=== PATIENT | male | born 1980 | race Caucasian/White ===

== ENCOUNTER 2017-12-01 06:12 | Inpatient (IN) | payer MEDICAID ==
[2017-12-01] VITALS (12 sets, daily range): BP systolic 110–145; BP diastolic 68–95; Ht 180.3 cm; Wt 85.5 kg
[~2017-12-01] VITALS: Ht 180.3 cm; Wt 85.5 kg
[2017-12-01 08:25] LABS: PLATELET COUNT 204 x10^3mcL (130-400); RED CELL DISTRIBUTION WIDTH 13.6 % (11.5-14.5)
[2017-12-01 08:29] LABS: CARBON DIOXIDE 17.8 mmol/L (21-32); CHLORIDE SERUM 104 mmol/L (98-107); CREATININE SERUM 1.6 mg/dL (0.7-1.3); GFR1 53 mL/min; GLUCOSE SERUM 97 mg/dL (74-106); POTASSIUM SERUM 3.6 mmol/L (3.5-5.1); SODIUM SERUM 138 mmol/L (136-145)
[2017-12-01 08:33] LABS: ALKALINE PHOSPHATASE 117 U/L (46-116); ALT/SGPT 135 U/L (16-63); AST/SGOT 285 U/L (15-37); BILIRUBIN TOTAL 1.09 mg/dL (0.20-1.00); TOTAL PROTEIN, SERUM 8.2 g/dL (6.4-8.2)
[2017-12-01 08:58] LABS: BAND NEUTROPHIL 7 % (0-10)
[2017-12-01 09:01] LABS: MONOCYTE 6 % (0-7)
[2017-12-01 09:02] LABS: PLATELET MORPHOLOGY PLATELETS NORMAL; SEGMENTED NEUTROPHILS 82 % (37-75); rbc morphology (normal/abnorm) NORMAL (NORMAL)
[2017-12-01 09:53] LABS: UA SPECIFIC GRAVITY >=1.030 (1.005-1.035); microscopic required? YES; urine erythrocyte 3+ (NEGATIVE)
[2017-12-01 10:01] LABS: AMPHETAMINE QUAL UR POSITIVE (See below)
[2017-12-01 10:55] LABS: APPEARANCE CSF CLEAR; COLOR CSF COLORLESS; RBC CSF 113.3 /cumm (0); WBC CSF 0 /cumm (0-5)
[2017-12-01 10:59] LABS: TOTAL PROTEIN CSF 20.9 mg/dL (15-45)
[2017-12-01 12:30] LABS: T3 TOTAL 1.26 ng/mL
[2017-12-01 13:18] LABS: FREE T4 1.78 ng/dL (0.76-1.46); FREE THYROXINE INDEX 3.6 ug/dL (1.4-4.5); T4(THYROXINE) 8.9 ug/dL (4.7-13.3)
[2017-12-01 14:28] LABS: PHOSPHOROUS 5.2 mg/dL (2.5-4.9)
[2017-12-01 14:33] LABS: CHOLESTEROL/HDL RATIO 3.1
[2017-12-02] VITALS (11 sets, daily range): BP systolic 100–132; BP diastolic 49–94
[2017-12-02 06:04] LABS: BASOPHIL % 0.3 % (0-2); PLATELET COUNT 163 x10^3mcL (130-400); RED CELL DISTRIBUTION WIDTH 13.9 % (11.5-14.5)
[2017-12-02 06:08] LABS: CARBON DIOXIDE 21.9 mmol/L (21-32); CREATININE SERUM 1.6 mg/dL (0.7-1.3); PHOSPHOROUS 4.8 mg/dL (2.5-4.9); POTASSIUM SERUM 3.3 mmol/L (3.5-5.1)
[2017-12-03 05:24] LABS: BASOPHIL % 0.4 % (0-2); PLATELET COUNT 170 x10^3mcL (130-400); RED CELL DISTRIBUTION WIDTH 13.8 % (11.5-14.5)
[2017-12-03 05:38] LABS: CALCIUM 8.7 mg/dL (8.5-10.1); CARBON DIOXIDE 22.6 mmol/L (21-32); CHLORIDE SERUM 109 mmol/L (98-107); GFR1 > 60 mL/min; GLUCOSE SERUM 82 mg/dL (74-106); MAGNESIUM 2.2 mg/dL (1.8-2.4); PHOSPHOROUS 3.8 mg/dL (2.5-4.9); POTASSIUM SERUM 3.1 mmol/L (3.5-5.1); SODIUM SERUM 142 mmol/L (136-145)
[2017-12-03 08:00] VITALS: BP 121/74
[2017-12-03 12:00] VITALS: BP 124/78
[2017-12-03 16:00] VITALS: BP 124/84
[2017-12-03 20:55] VITALS: BP 102/59
[2017-12-04 05:21] VITALS: BP 106/69
[2017-12-04 07:21] LABS: BASOPHIL % 0.7 % (0-2); PLATELET COUNT 187 x10^3mcL (130-400); RED CELL DISTRIBUTION WIDTH 13.5 % (11.5-14.5)
[2017-12-04 07:26] LABS: CALCIUM 7.7 mg/dL (8.5-10.1); CARBON DIOXIDE 27.9 mmol/L (21-32); CHLORIDE SERUM 109 mmol/L (98-107); CREATININE SERUM 0.8 mg/dL (0.7-1.3); GFR1 > 60 mL/min; GLUCOSE SERUM 114 mg/dL (74-106); MAGNESIUM 1.9 mg/dL (1.8-2.4); PHOSPHOROUS 3.5 mg/dL (2.5-4.9); SODIUM SERUM 146 mmol/L (136-145)
[2017-12-04 07:37] LABS: POTASSIUM SERUM 2.9 mmol/L (3.5-5.1)
[2017-12-04 09:40] VITALS: BP 126/82
[2017-12-04 12:09] VITALS: BP 125/86
[2017-12-04] MEDS ORDERED: LEVAQUIN750 MG PO (13:56)
[2017-12-04 14:43] VITALS: BP 125/86
== END 2017-12-04 17:20 | disposition home or self-care (01) | DRG 720 ==
LOC: ED 06:12 → IC 10:18 → DU 12-03 17:38 → IC 12-03 17:40 → DU 12-03 19:01
PROVIDERS: Emergency Medicine; Internal Medicine
PROC: 5A1945Z Respiratory Ventilation, 24-96 Consecutive Hours (ICD-10-PCS; principal; 2017-12-01)
PROC: 0BH17EZ Insertion of Endotracheal Airway into Trachea, Via Natural or Artificial Opening (ICD-10-PCS; 2017-12-01)
PROC: 009U3ZX Drainage of Spinal Canal, Percutaneous Approach, Diagnostic (ICD-10-PCS; 2017-12-01)
DX: A41.9 Sepsis, unspecified organism (principal); J96.00 Acute respiratory failure, unspecified whether with hypoxia or hypercapnia; J69.0 Pneumonitis due to inhalation of food and vomit; N17.0 Acute kidney failure with tubular necrosis; G92 Toxic encephalopathy; E87.2 Acidosis; R65.20 Severe sepsis without septic shock; F14.10 Cocaine abuse, uncomplicated; F15.10 Other stimulant abuse, uncomplicated; F13.10 Sedative, hypnotic or anxiolytic abuse, uncomplicated; E83.41 Hypermagnesemia; R74.0 Nonspecific elevation of levels of transaminase and lactic acid dehydrogenase [LDH]; J44.9 Chronic obstructive pulmonary disease, unspecified; R31.9 Hematuria, unspecified; R80.9 Proteinuria, unspecified; Z68.25 Body mass index [BMI] 25.0-25.9, adult
CPT/HCPCS: 83880; 84439; 86788; 86789; A4628; C9113; G0480; J0696; J1644; J2060; J2250; J2543; J2704; J3010; J3370; J3480; J3486; J3490; J7030; J7620; Q0092